=== PATIENT | male | born 1995 | race Caucasian/White ===

== ENCOUNTER 2022-01-08 12:12 | Emergency (ER) | payer OTHER, SELFPAY ==
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
[2022-01-08 12:16] VITALS: BP 137/81; PULSE 65; RESP 18; TEMP 36.6; O2SAT 98; BMI 25.1
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
[2022-01-08] MEDS: Lidocaine HCl 2 % MPF 5 ML VIAL INFILTRATI (14:05)
[2022-01-08] MEDS: Diphth,Pertus(ACell),Tet Adult 0.5 ML SYRINGE IM (14:30)
== END 2022-01-08 14:41 | disposition home or self-care (01) ==
PROVIDERS: Emergency Provider Student in an Organized Health Care Education/Training Program
DX: S81.812A Laceration without foreign body, left lower leg, initial encounter (principal); W45.8XXA Other foreign body or object entering through skin, initial encounter; Y93.55 Activity, bike riding; Y92.828 Other wilderness area as the place of occurrence of the external cause; Y99.9 Unspecified external cause status
CPT/HCPCS: 12032; 73590; 90471; 90715; 99284

== ENCOUNTER 2022-05-10 02:22 | Emergency (ER) | payer OTHER, SELFPAY ==
[2022-05-10 02:33] VITALS: BP 139/80; PULSE 79; RESP 16; TEMP 36.7; O2SAT 99; BMI 24.3
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
[2022-05-10] MEDS: Lidocaine HCl 1 % MPF 2 ML VIAL 4 ML INFILTRATI (04:34)
--- NOTE | 2022-05-10 04:34 | PC.NURSE ---
xylocaine given by provider, only 30 ml bottle available from [facility].
== END 2022-05-10 04:51 | disposition home or self-care (01) ==
PROVIDERS: Emergency Provider Emergency Medicine; PCP Internal Medicine
DX: S61.012A Laceration without foreign body of left thumb without damage to nail, initial encounter (principal); S61.211A Laceration without foreign body of left index finger without damage to nail, initial encounter; W26.9XXA Contact with unspecified sharp object(s), initial encounter; Y93.9 Activity, unspecified; Y92.9 Unspecified place or not applicable; Y99.0 Civilian activity done for income or pay
CPT/HCPCS: 12002; 99282; 99283

== ENCOUNTER 2022-05-19 10:41 | Emergency (ER) | payer OTHER, SELFPAY ==
[2022-05-19 10:58] VITALS: BP 123/62; PULSE 65; RESP 18; TEMP 37.2; O2SAT 98; BMI 24.3
--- NOTE | 2022-05-19 11:36 | ED_ITS ---
HPI - Wound/Laceration General Chief Complaint: Wound/Laceration Stated Complaint: stitches removal in hand Time Seen by Provider: 05/19/22 11:20 Source: patient Mode of arrival: ambulatory Limitations: no limitations History of Present Illness HPI narrative: The patient is a 27 year old male seen in [facility] ED on 05/10 for a laceration, presenting today for stitch removal from his left index finger. Patient states he has 3 stitches on his index finger, but reports he had stiches on his thumb, but they tore and he pulled the other stitches out. Patient denies any signs of infection - no streaking, no increase in warmth, no fever or chills. Onset (ago): day(s) () Location: other (hand ) Extremity Location: left: hand (index ) Place: work Patient tetanus UTD: Yes Context: accidental and fall Associated symptoms: none Related Data Allergies Allergy/AdvReac Type Severity Reaction Status Date / Time No Known Allergies Allergy Unverified 04/23/20 16:33 [No Known Allergies*] Review of Systems Review of Systems: Constitutional: No Fever, No Chills Cardiovascular: No Chest Pain, No SOB Respiratory: No Cough, No Sputum Musculoskeletal: No joint pain, No Myalgias Skin: No Skin Lesions, No rash, no streaking Neuro: No Weakness, No Numbness, Heme/Lymph: No Bruising, Yes all other systems are reviewed and are negative [facility] Social History Social History Advance Directives: No Advance Directives Information Provided: No Physical Exam Vital Signs: Vital Signs: Last Vital Signs Temp 98.9 F 05/19/22 10:58 Pulse 65 05/19/22 10:58 Resp 18 05/19/22 10:58 BP 123/62 05/19/22 10:58 Pulse Ox 98 05/19/22 10:58 O2 Del Method 05/19/22 10:58 BMI result Body Mass Index 24.3 Appearance: Alert. Oriented X3. No acute distress. Neck: Normal inspection. Neck supple. CVS: Normal heart rate and rhythm. Pulses normal. Respiratory: No respiratory distress. Breath sounds normal. Skin: Skin warm and dry. Normal skin color. Normal skin turgor. No rashes. 2 Healing lacerations on the left index and left thumb. Extremities: No lower extremity edema. Neuro: Oriented X 3. No motor deficit. No sensory deficit. Course Course Course Narrative: Patient is a 27 year old male presenting today for a suture removal. Patient was seen in [facility] ED 10 days prior for sutures. Physical exam unremarkable - no signs of infection, 2 well healing lacerations noted. Steri-strips will be applied to the laceration on the thumb due to the stitches being taken out prior to the 10 days. Laceration is healing, though slower than the index laceration. Plan: - expected d/c home with instructions to cover the wounds with bandages. - Patient instructed to leave steri-strips on and told they will fall off on their own in 7 days. Discharge Plan Discharge Clinical Impression: Laceration Patient Disposition: Home, Self-Care Instructions: Stitches Removal (ED) Additional Instructions: You were seen in the ED for suture removal. Steri-strips were applied to the laceration on your left thumb. The steri-strips will fall off on their own in 7- 10 days. Do not submerge your hand in water. If you develop signs of infection such as streaking, discharge from the wound, warmth of the laceration or fever return to the ED or follow up with your PCP. If you develop new or worsening symptoms call 911 or come back to the ER for further evaluation. Interventions: ED Discharge Assessment Last Done: 05/19/22 12:07 Discharge Date/Time: 05/19/22 12:08
== END 2022-05-19 12:08 | disposition home or self-care (01) ==
PROVIDERS: Emergency Provider Student in an Organized Health Care Education/Training Program
DX: Z48.02 Encounter for removal of sutures (principal); S61.211D Laceration without foreign body of left index finger without damage to nail, subsequent encounter; S61.012D Laceration without foreign body of left thumb without damage to nail, subsequent encounter; X58.XXXD Exposure to other specified factors, subsequent encounter
CPT/HCPCS: 99283

== ENCOUNTER 2024-12-10 11:16 | Outpatient (AMB) | payer OTHER, SELFPAY ==
--- NOTE | 2024-12-10 11:36 | AM.OFFWIN_ITS ---
Intake Vital Signs 12/10/24 11:37 Height 5 ft 9 in Weight 170 lb BMI 25.1 BP 110/70 Blood Pressure Location Rt brachial Position Sitting Pulse 66 Pulse Source Pulse Oximeter Temp 98.2 F Temp Source Oral Pulse Oximetry (%) 98 Oxygen Delivery Method Room Air Intake Visit Reasons: EP ? swollen lymph nodes Intake Note: Patient here for swollen lymph nodes he noticed a couple of weeks ago, denies any sore throat. 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 Patient denies having any fevers, chills, ear pain, sore throat, difficulty swallowing, cough or shortness for breath. [facility] Social History Patient Tobacco Use Status: Former Tobacco user Review of Systems Const All systems reviewed & are unremarkable except as noted in HPI and below Eyes Reports no additional complaints ENT Reports no additional complaints, Denies otalgia, Denies facial pain and Denies throat swelling Card Reports no additional complaints Resp Reports no additional complaints and Denies cough GI Reports no additional complaints Reports no additional complaints Musc Reports no additional complaints Skin/Breast Reports system reviewed and no additional complaints, except as documented Psych Reports no additional complaints Endo Reports no additional complaints Jarrod/Lymph Reports no additional complaints and Reports lymphadenopathy (neck) Aller/Immun Reports no additional complaints and Denies throat swelling Physical Exam Vital Signs: Last Vital Signs Temp 98.2 F 12/10/24 11:37 Pulse 66 12/10/24 11:37 BP 110/70 12/10/24 11:37 Pulse Ox 98 12/10/24 11:37 Oxygen Delivery Method Room Air 12/10/24 11:37 BMI result Body Mass Index 25.1 Const General: cooperative, healthy appearing, comfortable, no acute distress, well developed, alert, awake and Physically active; No in distress, anxious or ill appearing Nutritional Appearance: average body habitus Orientation/consciousness: patient oriented x3 Limitations: no limitations HEENT Head: Yes normal to inspection and Yes normocephalic Ears: hearing grossly normal bilaterally, external ears normal, TM's normal bilaterally and EAC's normal General nose exam: Normal external nose present Face and sinus: Yes normal facial exam and Yes face symmetric Mouth: Normal oral and palatal mucosa present and moist mucous membranes Teeth and gingiva: dentition normal Throat: Yes posterior oropharynx normal and No postnasal drainage Eyes General: appearance normal, both eyes and all related structures Neck Other: There is no clinical evidence of posterior, occipital, posterior cervical, submental, submandibular or supraclavicular lymphadenopathy bilaterally. Neck: Yes normal visual inspection, Yes full ROM and Yes no lymphadenopathy Resp Effort & Inspection: normal respiratory effort, able to speak in complete sentences, no audible wheezes, no cough and not tachypneic Auscultation: clear to auscultation bilaterally Cardio Rate: regular rate Rhythm: regular rhythm Neuro General: patient oriented x3 Psych Appearance: grossly normal Mental Status: mental status grossly normal Insight: Good insight present (Psych) Judgement: Good judgement present (Psych) Assessment & Plan Assessment & Plan (1) Well adult exam: Code(s): Z00.00 - Encounter for general adult medical examination without abnormal findings Plan: There is no adenopathy appreciated on examination. Patient is reassured and will follow up with his primary care provider as needed. Coding Level of Care Code Est Pt Level 3 (65015) Diagnoses Well adult exam Z00.00
[2024-12-10 11:37] VITALS: BP 110/70; PULSE 66; TEMP 36.8; O2SAT 98; BMI 25.1
== END 2024-12-10 13:05 | disposition home or self-care (01) ==
PROVIDERS: Visit Provider Physician Assistant
DX: Z71.1 Person with feared health complaint in whom no diagnosis is made (principal)

== ENCOUNTER → 2024-12-10 11:16 | Outpatient (BNVA) | payer OTHER, SELFPAY | PROVIDERS: Visit Provider Physician Assistant | DX: Z13.89 Encounter for screening for other disorder (principal) ==

== ENCOUNTER 2025-06-26 13:18 | Outpatient (AMB) | payer OTHER, SELFPAY ==
--- NOTE | 2025-06-26 13:22 | A.OFFPC_ITS ---
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 Form Remover Required: No Accompanied by: Self / Same As Patient Allergies cat dander (cats) Allergy (Severe, Verified 06/26/25 13:46) Swelling Medication List - Last Reconciled 06/26/25 by JULIA Lai No Known Home Meds Tobacco use date assessed: 06/26/25 Dental Screening Dental Screen Date: 06/26/25 Did you have a dental visit in the last 12 months?: Yes Did you have a dental problem in the last 6 months where you did not have access to dental care?: No Was dental information given to patient?: Patient has dentist HPI HPI Comments History of Present Illness Details Previous PCT: Skyler [facility] Last visit:about 5 years Last PE:2-3 years ago for employment reasons Specialist: no OBGYN:n/a Past medical history: asthma as a child, internal hemmoids in the past, blood in the stool on and off, has to take fiber, has not been keeping up with his fluid intake surgery: skin graph for right thigh in 2012, multiple broken bone when he was younger Medications: Family HX: paternal grandfather and father had heart issues, maternal grandmother from ca, it was already spread to multiple organs when it was noticed, mother MS, cirrhosis that she passed from. Problem: Right Jawline lump, scrotal pain The patient is a 30 year old individual presenting for a physical examination with concerns about a right-sided neck hardness and left scrotal pain. The last physical exam was two or three years ago. The patient noticed a hardness along the right side of the neck a few months ago. The patient reports it was previously checked, but the provider at that time could not feel it; however, the patient can still feel it. The patient denies any associated sore throat or changes in voice. The patient also reports intermittent, dull, aching pain in the left scrotum, which comes and goes randomly. The patient denies any pain with urination or known injury to the area. Past medical history is notable for a skin graft in 2014 and multiple bone fractures, including the wrist. The patient does not take any regular medications. Family history is significant for heart issues and addiction on the father's side. The patient also reports constipation. Health Maintenance For general health screening, the patient will have fasting blood work done. A follow-up visit is scheduled in seven weeks to discuss the results of the labs and imaging. The patient was instructed to complete the required tests at least one week prior to the follow-up appointment. Social History - Family History: The patient reports a family history of addiction issues. Results [facility] Medical History Asthma Internal hemorrhoids Surgical History H/O skin graft Family History (Updated 06/26/25 @ 21:53 by JULIA Lai) Father Heart disease Paternal Grandfather Heart disease Maternal Grandmother Cancer Mother Multiple sclerosis Cirrhosis Social History Alcohol intake: never Patient Tobacco Use Status: Former Tobacco user Current occupational status: employed Cognitive needs: No Hearing needs: No Vision needs: No Questionnaire PHQ-9 Over the last 2 weeks, how often have you been bothered by any of the following problems? 1. Little interest or pleasure in doing things: several days 2. Feeling down, depressed, or hopeless: several days 3. Trouble falling or staying asleep, or sleeping too much: several days 4. Feeling tired or having little energy: several days 5. Poor appetite or overeating: several days 6. Feeling bad about yourself - or that you are a failure or have let yourself or your family down: several days 7. Trouble concentrating on things, such as reading the newspaper or watching television: several days 8. Moving or speaking so slowly that other people could have noticed. Or the opposite - being so fidgety or restless that you have been moving around a lot more than usual: several days 9. Thoughts that you would be better off or of hurting yourself in some way: not at all Total score: 8 Depression Screening Interpretation: Positive Depression Screening Done: Yes 75200 - PHQ-9 Billing: Yes Source: Developed by Drs. Helio Yates, Peter Gayle and colleagues, with an educational leanne from [employer]. Thrive Questionnaire Date Thrive assessed: 06/26/25 I am a: Patient What is your living situation today?: I have a steady place to live Within the past 12 months, did the food you bought not last and you didn't have the money to get more?: Never true Within the past 12 months, did you worry whether your food would run out before you got money to buy more?: Never true Do you have trouble paying for medicines?: No Do you have trouble getting transportation to medical appointments?: No Do you have trouble paying your heating and electricity bill?: No Do you have trouble taking care of your child, family member or friend?: No Do you have trouble with day-to-day activities such as bathing, preparing meals, shopping, managing finances, etc.?: No Are you currently unemployed and looking for a job?: No Are you interested in more education?: No Please select the resources that you would like help with: None Currently or been in a relationship where the following occur: No concerns reported THRIVE Score: 0 AUDIT C Alcohol Use Questionnaire (AUDIT-C) 1. How often do you have a drink containing alcohol?: Never 3. How often do you have six or more drinks on one occasion?: Never Total Score: 0 NICHOLAS-7 AMB Questionnaire NICHOLAS-7 Date NICHOLAS - 7 assessed: 06/26/25 Feeling nervous, anxious, or on edge: 1 = Several days Not being able to stop or control worryin = Several days Worrying too much about different things: 1 = Several days Trouble relaxin = Several days Being so restless that it is hard to sit still: 1 = Several days Becoming easily annoyed or irritable: 1 = Several days Feeling afraid as if something awful might happen: 1 = Several days Total NICHOLAS-7 score (0-4 normal; 5-9 mild; 10-14 moderate; 15-21 severe): 7 Source: Developed by Drs. Helio Yates, Peter Gayle and colleagues, with an educational leanne from [employer]. Review of Systems Narrative Review of Systems - HEENT: Reports a sensation of hardness in the right neck. - Denies sore throat or voice changes. - Cardiovascular: Denies chest pain. - Respiratory: Denies shortness of breath. - Gastrointestinal: Reports constipation. - Denies abdominal pain. - Genitourinary: Reports intermittent, dull, aching pain in the left scrotum. - Denies dysuria. Const Denies headache(s) Eyes Denies loss of vision ENT Denies vertigo, Denies dizziness, Denies headache(s), Denies sore throat and Reports other (Lump in neck) Card Denies chest pain, Denies leg edema and Denies lightheadedness Resp Denies cough, Denies hemoptysis and Denies wheezing GI Denies abdominal pain, Denies melena, Reports hematochezia (Intermittent-history of internal hemorrhoids), Denies constipation, Denies diarrhea and Denies vomiting Denies dysuria, Denies urinary frequency and Denies urinary urgency Musc Denies arthralgias, Denies joint swelling, Denies numbness and Denies tingling Neuro Denies Abnormal speech present, Denies behavioral changes, Denies vertigo, Denies dizziness, Denies headache(s), Denies loss of vision, Denies memory loss, Denies numbness and Denies tingling Psych Denies anxiety, Denies behavioral changes, Denies depression, Denies memory loss and Denies panic attacks Jarrod/Lymph Denies easy bleeding and Denies easy bruising Aller/Immun Denies wheezing Physical exam (Primary Care) Vital Signs: Last Vital Signs Temp 97.7 F 06/26/25 13:23 Pulse 59 06/26/25 13:23 Resp 18 06/26/25 13:23 BP 130/78 06/26/25 13:23 Pulse Ox 98 06/26/25 13:23 Oxygen Delivery Method Room Air 06/26/25 13:23 BMI result Body Mass Index 25.3 Tobacco/Smoking Status: Tobacco use Status Tobacco use date assessed 06/26/25 06/26/25 13:42 Patient Tobacco Use Status Former Tobacco user 06/26/25 13:36 PHQ-9: PHQ-9 Score PHQ-9: Total score 8 06/26/25 13:56 Depression Screening Interpretation: Positive Thrive Assessment: Date of Thrive Assessment Date Thrive assessed 06/26/25 06/26/25 13:23 Currently or been in a relationship where the following occur: No concerns reported Narrative Physical Exam - Neck: Palpation of the right neck did not reveal a distinct or palpable mass. - Genitourinary: Examination of the left scrotum was non-tender to palpation. - Abdomen: The abdomen was non-tender upon palpation. Const General: healthy appearing, no acute distress, alert and awake Nutritional Appearance: well nourished Orientation/consciousness: oriented to person, oriented to place and oriented to time HENMT Ears: TM's normal bilaterally General nose exam: Normal nasal mucous membranes and turbinates present Eyes Conjunctivae: conjunctivae normal Sclerae: sclerae normal Pupils: Equal, round and reactive pupils present Neck Neck: Yes lymphadenopathy (small right anterior cervical mass) and Yes no JVD Thyroid: Thyroid normal Carotids: no bruits Resp Effort & Inspection: normal respiratory effort and not tachypneic Auscultation: no crackles, no rales, no rhonchi and no wheezes Cardio Rate: regular rate Rhythm: regular rhythm Heart sounds: S1 normal heart sound present, S2 normal heart sound present, no murmurs and normal S1 and S2 GI Palpation (GI): Soft to palpation, nontender, no hepatomegaly and no splenomegaly Auscultation: normal bowel sounds General: Yes no CVA tenderness Penis: normal penis Scrotum: no masses and no scrotal swelling Testes: Testes normal Back/Spine/Pelvis Back: no CVA tenderness Skin General skin exam: no rashes or lesions noted and dry skin Neuro General: oriented to person, oriented to place and oriented to time Cranial nerves: Yes Equal, round and reactive pupils present Speech: No Abnormal speech present Gait exam (Neuro): Normal gait present Motor exam (neuro): no tremor noted Extrem Right upper extremity: full ROM Left upper extremity: full ROM Right lower extremity: full ROM; no edema Left lower extremity: full ROM; no edema Psych Mental Status: mental status grossly normal Speech and movement: Normal speech and movement present Affect: normal affect Attitude: cooperative Thought process: Normal thought process present Coding Level of Care Code New Pt Level 4 (87115) Diagnoses Internal hemorrhoids K64.8 Lump on neck R22.1 Scrotal pain N50.82 Additional Codes PHQ-9 - 41127 - PHQ-9 Billing: Yes ([id number]) Time Spent (min) 38 Assessment & Plan Assessment & Plan (1) Internal hemorrhoids: Code(s): K64.8 - Other hemorrhoids Category: Medical (2) Lump on neck: Code(s): R22.1 - Localized swelling, mass and lump, neck Category: Medical (3) Scrotal pain: Code(s): N50.82 - Scrotal pain Category: Medical Plan Plan Patient was informed and verbally consented to the use of an ambient scribe for clinic note documentation during this visit. 1. Right Neck Mass The patient reports a persistent sensation of hardness in the right neck for a few months, which was not palpated on a previous exam by another provider or on today's exam. A small right anterior cervical what appears to a lymph node. Given the patient's ongoing concern, neck US was ordered and the area will be re-evaluated at the follow-up visit in seven weeks. 2. Left Scrotal Pain The patient experiences intermittent, dull, aching pain in the left scrotum, which is non-tender on examination. To investigate this further, an order for a scrotal ultrasound and a urinalysis will be placed , along with a PSA. Internal hemorrhoid Intermittent blood in the stool due to hydration and fiber inconsistency. Encouraged the patient to increase his fluid and fiber intake. Discussion Notes I discussed my physical exam findings with the patient. Regarding the right neck, I acknowledged the patient's sensation of hardness but explained that I was unable to palpate a definitive mass. For the left scrotal pain, I explained that although the exam was reassuring, I recommended further investigation with a scutal ultrasound and a urine test to rule out underlying issues. I also recommended fasting bloodwork for routine health screening. We scheduled a follow-up appointment in seven weeks to review all results, and I advised the patient to complete the tests at least a week prior to this visit so we could review them together. Patient Instructions - An order has been placed for an ultrasound of your scrotum. - The imaging department will call you to schedule the appointment. - Please go for fasting blood work. - Do not eat or drink anything other than water for 8-12 hours before your blood is drawn. - A urine sample will be collected to check your urine. - Please try to have all tests completed at least one week before your next appointment. - Your follow-up visit to review results is scheduled in about seven weeks. Orders: Orders Comprehensive [place]. Panel Fast Today N50.82 - Scrotal pain, R22.1 - Localized swelling, mass and lump, neck, Z00.00 - Encounter for general adult medical examination without abnormal findings Lipid Panel Today N50.82 - Scrotal pain, R22.1 - Localized swelling, mass and lump, neck, Z00.00 - Encounter for general adult medical examination without abnormal findings TSH reflex Free T4 Today N50.82 - Scrotal pain, R22.1 - Localized swelling, mass and lump, neck, Z00.00 - Encounter for general adult medical examination without abnormal findings CRP High Sensitivity Today N50.82 - Scrotal pain, R22.1 - Localized swelling, mass and lump, neck, Z00.00 - Encounter for general adult medical examination without abnormal findings US scrotum Today N50.82 - Scrotal pain US soft tiss head and/or neck Today R22.1 - Localized swelling, mass and lump, neck Complete Blood Count Auto Diff Today N50.82 - Scrotal pain, R22.1 - Localized swelling, mass and lump, neck, Z00.00 - Encounter for general adult medical examination without abnormal findings UA CC w/rflx Micro + Cult Today N50.82 - Scrotal pain, R22.1 - Localized swelling, mass and lump, neck, Z00.00 - Encounter for general adult medical examination without abnormal findings Vitamin D 25-OH Total Today N50.82 - Scrotal pain, R22.1 - Localized swelling, mass and lump, neck, Z00.00 - Encounter for general adult medical examination without abnormal findings PSA,Total (Free>4and<10) Today N50.82 - Scrotal pain, R22.1 - Localized swelling, mass and lump, neck, Z00.00 - Encounter for general adult medical examination without abnormal findings Erythrocyte Sedimentation Rate Today N50.82 - Scrotal pain, R22.1 - Localized swelling, mass and lump, neck, Z00.00 - Encounter for general adult medical examination without abnormal findings
[2025-06-26 13:23] VITALS: BP 130/78; PULSE 59; RESP 18; TEMP 36.5; O2SAT 98; BMI 25.3
== END 2025-06-26 14:17 | disposition home or self-care (01) ==
LOC: HO.HMCH 13:19
DX: K64.8 Other hemorrhoids (principal); R22.1 Localized swelling, mass and lump, neck; N50.82 Scrotal pain

== ENCOUNTER → 2025-06-26 13:18 | Outpatient (BNVA) | payer OTHER, SELFPAY | DX: K64.8 Other hemorrhoids (principal); N50.82 Scrotal pain; R22.1 Localized swelling, mass and lump, neck | CPT/HCPCS: 96127 ==

== ENCOUNTER 2025-07-24 09:39 | Outpatient (REF) | payer OTHER, SELFPAY ==
--- NOTE | ~2025-07-24 | US_ITS ---
CLINICAL HISTORY: Right neck lump. US neck nonvascular Comparison: None Findings: Sonographic evaluation in the area of clinical concern right submandibular region demonstrated 2 well-circumscribed isoechoic avascular lesions without significant through transmission in horizontal orientation measuring 2.3 x 1.3 x 0.8 cm and 0.9 x 0.6 x 0.9 cm. There is no true reniform shape fatty hilum demonstrated and therefore not typical for a lymph node. CT or MR correlation with contrast is therefore recommended. Impression: Two probable solid circumscribed nodules in the right submandibular area that are palpable do not have the classic morphology of lymph nodes and therefore a contrast CT or MRI soft tissue of the neck is recommended. This document has been electronically signed by: Shaun Resendiz MD on 07/24/2025 12:08:59
--- NOTE | ~2025-07-24 | US_ITS ---
CLINICAL HISTORY: N50.82 - Scrotal pain US scrotum with Color and Duplex doppler. Comparison: None Technique: Real time sonographic imaging, including color-flow imaging, was performed by the sales development representative. Multiple account representative static images were saved for review. Findings: Right testicle normal size and echotexture, 4.5 x 2.4 x 3.3 cm. Normal color flow. Normal arterial and venous spectral doppler waveforms. Minimal testicular microlithiasis or intratesticular masses. Left testicle normal size and echotexture, 4.5 x 1.9 x 2.9 cm. Normal color flow. Normal arterial and venous spectral doppler waveforms. Mild testicular microlithiasis. 2.2 x 2.4 x 1.8 cm epididymal cyst Traceleft hydrocele Small left varicoceles. Impression: 1. Minimal testicular microlithiasis bilaterally. No intratesticular masses. No evidence of testicular torsion. Left varicocele. Small hydrocele on the left. Left epididymal cyst is incidental. This document has been electronically signed by: Shaun Resendiz MD on 07/24/2025 12:18:10
== END 2025-07-24 09:40 ==
LOC: HO.HMGCX 09:39
DX: R22.1 Localized swelling, mass and lump, neck (principal); N50.82 Scrotal pain
CPT/HCPCS: 76536; 76870

== ENCOUNTER → 2025-07-24 09:43 | Outpatient (BNV) | payer OTHER, SELFPAY | PROVIDERS: Visit Provider Radiology Diagnostic Radiology | DX: I86.1 Scrotal varices (principal); N43.3 Hydrocele, unspecified; R22.1 Localized swelling, mass and lump, neck | CPT/HCPCS: 76536; 76870 ==